=== PATIENT | female | born 1960 | race Caucasian/White ===

== ENCOUNTER 2017-02-28 22:33 | Inpatient (IN) | payer OTHER ==
[~2017-02-28] VITALS: Ht 160 cm; Wt 70.8 kg
[~2017-02-28 22:33] MED LIST: LEVO50TA74 PO; MULT1TAB59
--- NOTE | 2017-02-28 23:22 | RADRPT ---
PROCEDURE: XR Chest. CLINICAL INDICATION: Chest pain. TECHNIQUE: Single frontal view. COMPARISON: None. FINDINGS: The lungs are clear. The heart size is normal. There is no pleural effusion. There is no pneumothorax. IMPRESSION: 1. Normal chest radiograph. RPTAT: QQ .Randy Escoto MD, Date Time Electronically viewed and signed by .Randy Escoto MD, on 02/28/2017 23:21 .R/
[2017-02-28 23:55] LABS: BASOPHILS % 0.6 % (0.0-2.0); EOSINOPHILS # 0.2 10^3/ul (0.0-0.5); EOSINOPHILS % 3.1 % (0.0-7.0); HEMATOCRIT 36.9 % (37.0-47.0); HEMOGLOBIN 12.2 g/dl (12.0-16.0); LYMPHOCYTES # 2.2 10^3/ul (0.8-2.9); LYMPHOCYTES % 35.3 % (15.0-51.0); MEAN CORPUSCULAR HEMOGLOBIN 30.8 pg (29.0-33.0); MEAN CORPUSCULAR HGB CONC 33.1 g/dl (32.0-37.0); MEAN CORPUSCULAR VOLUME 93.2 fl (82.0-101.0); MONOCYTE # 0.7 10^3/ul (0.3-0.9); MONOCYTES % 10.6 % (0.0-11.0); NEUTROPHIL # 3.1 10^3/ul (1.6-7.5); NEUTROPHILS % 50.2 % (39.0-77.0); PLATELET COUNT 367 10^3/UL (140-415); RED BLOOD COUNT 3.96 10^6/ul (4.20-5.40); RED CELL DISTRIBUTION WIDTH 12.3 % (11.5-14.5); WHITE BLOOD COUNT 6.2 10^3/ul (4.8-10.8)
[2017-03-01 00:17] LABS: ALANINE AMINOTRANSFERASE 78 IU/L (13-69); ALBUMIN 4.1 g/dl (3.3-4.9); ALBUMIN/GLOBULIN RATIO 1.17; ALKALINE PHOSPHATASE 73 IU/L (42-121); ANION GAP 10 (8-16); ASPARTATE AMINO TRANSFERASE 49 IU/L (15-46); BILIRUBIN,INDIRECT 0.1 mg/dl (0-1.1); BILIRUBIN,TOTAL 0.1 mg/dl (0.2-1.3); BLOOD UREA NITROGEN 14 mg/dl (7-20); CALCIUM 8.9 mg/dl (8.4-10.2); CARBON DIOXIDE 29 mmol/L (21-31); CHLORIDE 103 mmol/L (97-110); CREATININE 0.78 mg/dl (0.44-1.00); GLUCOSE 102 mg/dl (70-220); POTASSIUM 3.8 mmol/L (3.5-5.1); SODIUM 138 mmol/L (135-144); TOTAL PROTEIN 7.6 g/dl (6.1-8.1)
[2017-03-01 00:29] LABS: B-TYPE NATRIURETIC PEPTIDE 64 PG/ML (0-125)
[2017-03-01 00:40] LABS: TROPONIN-I < 0.012 ng/ml (0.00-0.12)
[2017-03-01] MEDS ORDERED: ATOR20TA38 PO ×2 (02:18→12:40)
[2017-03-01] MEDS ORDERED: NAPR-688 PO (02:18)
--- NOTE | 2017-03-01 02:36 | ERA ---
ER Documentation Chief Complaint Date/Time DATE: 03/01/17 TIME: 02:30 Chief Complaint c/o mid chest pain radiating to left arm, started this AM. Hx: Ovarian CA HPI This is a 56-year-old female comes in with chest pain rating on the started this morning. Pain is mild to moderate intensity. No nausea no vomiting no chills. Pain is sharp, substernal, nonexertional positional no exacerbating or alleviating factors. No other current complaints for the patient. No nausea no vomiting diaphoresis. Patient is a history of ovarian cancer giving her risk factor for hypercoagulable state. ROS All systems reviewed and are negative except as per history of present illness. Medications Home Meds Reported Medications Atorvastatin Calcium* (Atorvastatin Calcium*) 20 Mg Tablet, 20 MG PO QHS, #30 TAB 03/01/17 Naproxen* (Naproxen*) 500 Mg Tablet, 500 MG PO DAILY Y for PAIN, TAB 03/01/17 Levothyroxine Sodium* (Levothyroxine Sodium*) 50 Mcg Tablet, 50 MCG PO BEFORE BREAKFAST, #30 TAB 04/06/16 Discontinued Reported Medications Multivitamins* (Multivitamins*) 1 Tab Tablet 08/03/10 Allergies Allergies: Coded Allergies: No Known Allergies (Unverified Allergy, Mild, 03/01/17) PMhx/Soc History of Surgery: Yes (luz elena, appy, iud removed, breast implant) Anesthesia Reaction: Yes (voming ) Hx Neurological Disorder: No Hx Respiratory Disorders: No Hx Cardiac Disorders: Yes (high chol, not taking med) Hx Psychiatric Problems: No Hx Miscellaneous Medical Probl: No Hx Alcohol Use: No Hx Substance Use: No Hx Tobacco Use: No Smoking Status: Never smoker Physical Exam Vitals Vital Signs Date Time Temp Pulse Resp B/P Pulse Ox O2 Delivery O2 Flow Rate FiO2 03/01/17 02:24 61 16 122/88 99 Room Air 03/01/17 01:00 67 124/92 98 Room Air 03/01/17 00:41 69 15 132/77 99 Room Air 02/28/17 23:20 127/85 02/28/17 22:40 98.7 76 20 151/82 97 Physical Exam Const: [] Head: Atraumatic Eyes: Normal Conjunctiva ENT: Normal External Ears, Nose and Mouth. Neck: Full range of motion..~ No meningismus. Resp: Clear to auscultation bilaterally Cardio: Regular rate and rhythm, no murmurs Abd: Soft, non tender, non distended. Normal bowel sounds Skin: No petechiae or rashes Back: No midline or flank tenderness Ext: No cyanosis, or edema Neur: Awake and alert Psych: Normal Mood and Affect Result Diagram: 02/28/17 2350 02/28/17 2350 Results 24 hrs Laboratory Tests Test 02/28/17 23:50 White Blood Count 6.210^3/ul Red Blood Count 3.9610^6/ul Hemoglobin 12.2g/dl Hematocrit 36.9% Mean Corpuscular Volume 93.2fl Mean Corpuscular Hemoglobin 30.8pg Mean Corpuscular Hemoglobin Concent 33.1g/dl Red Cell Distribution Width 12.3% Platelet Count 56740^3/UL Mean Platelet Volume 10.0fl Neutrophils % 50.2% Lymphocytes % 35.3% Monocytes % 10.6% Eosinophils % 3.1% Basophils % 0.6% Nucleated Red Blood Cells % 0.0/100WBC Neutrophils # 3.110^3/ul Lymphocytes # 2.210^3/ul Monocytes # 0.710^3/ul Eosinophils # 0.210^3/ul Basophils # 0.010^3/ul Nucleated Red Blood Cells # 0.010^3/ul Sodium Level 138mmol/L Potassium Level 3.8mmol/L Chloride Level 103mmol/L Carbon Dioxide Level 29mmol/L Anion Gap 10 Blood Urea Nitrogen 14mg/dl Creatinine 0.78mg/dl Glucose Level 102mg/dl Calcium Level 8.9mg/dl Total Bilirubin 0.1mg/dl Direct Bilirubin 0.00mg/dl Indirect Bilirubin 0.1mg/dl Aspartate Amino Transf (AST/SGOT) 49IU/L Alanine Aminotransferase (ALT/SGPT) 78IU/L Alkaline Phosphatase 73IU/L Troponin I < 0.012ng/ml B-Type Natriuretic Peptide 64PG/ML Total Protein 7.6g/dl Albumin 4.1g/dl Globulin 3.50g/dl Albumin/Globulin Ratio 1.17 Procedures/MDM EKG: Rate/Rhythm: [Normal Sinus Rhythm] QRS, ST, T-waves: [No changes consistent w/ acute ischemia] Impression: [No evidence of ischemia or arrhythmia] Chest X-ray 1V Interpreted by me: Soft Tissue: No acute abnormalities Bones: No acute abnormalities Mediastinum/Cardiac Silhouette/Lungs: [No acute abnormalities] Patient's symptoms are concerning for cardiac cause will require inpatient workup and continuous monitoring. Further w/u for ischemia, arrhythmia, PE or dissection will be deferred to the inpatient team. Accepting Care Team: Current data and ongoing care discussed. Time: 200 Primary Provider: Hospitalist Consulting: [XOXOXO] Outstanding Data: none Departure Diagnosis: Primary Impression: Chest pain Qualified Code: R07.9 - Chest pain, unspecified type Condition: Serious ZORAIDA MARRERO Mar 01, 2017 02:36
[2017-03-01 03:45] VITALS: BP 149/84; PULSE 63; RESP 18; Ht 160 cm; Wt 70.8 kg
[2017-03-01] MEDS ORDERED: ACETAMINOPHEN 325 MG TAB PO PRN (04:00)
[2017-03-01] MEDS ORDERED: NITROGLYCERIN (SL) 0.4 MG TAB SL PRN (04:00)
[2017-03-01] MEDS ORDERED: ALBUTEROL/IPRATROPIUM (NEB) 3 ML AMP HHN PRN (04:00)
[2017-03-01] MEDS ORDERED: morphine 2 MG INJ IV PRN (04:00)
[2017-03-01] MEDS ORDERED: NACL 0.9% 3 ML SYG IV SCH (04:00)
[2017-03-01] MEDS ORDERED: ONDANSETRON 4 MG INJ IV PRN (04:00)
[2017-03-01 05:35] LABS: BASOPHIL # 0.1 10^3/ul (0.0-0.1); BASOPHILS % 0.8 % (0.0-2.0); EOSINOPHILS # 0.2 10^3/ul (0.0-0.5); HEMATOCRIT 35.9 % (37.0-47.0); HEMOGLOBIN 11.6 g/dl (12.0-16.0); LYMPHOCYTES # 2.4 10^3/ul (0.8-2.9); MEAN CORPUSCULAR HGB CONC 32.3 g/dl (32.0-37.0); MEAN CORPUSCULAR VOLUME 92.8 fl (82.0-101.0); MEAN PLATELET VOLUME 10.1 fl (7.4-10.4); MONOCYTE # 0.6 10^3/ul (0.3-0.9); MONOCYTES % 9.1 % (0.0-11.0); NEUTROPHIL # 3.1 10^3/ul (1.6-7.5); NEUTROPHILS % 48.9 % (39.0-77.0); PLATELET COUNT 350 10^3/UL (140-415); RED BLOOD COUNT 3.87 10^6/ul (4.20-5.40); RED CELL DISTRIBUTION WIDTH 12.8 % (11.5-14.5); WHITE BLOOD COUNT 6.4 10^3/ul (4.8-10.8)
[2017-03-01 05:53] LABS: CREATINE KINASE 136 IU/L (23-200)
[2017-03-01 06:06] LABS: CK-MB 1.46 ng/ml (0.0-2.4)
[2017-03-01 06:12] LABS: TROPONIN-I < 0.012 ng/ml (0.00-0.12)
[2017-03-01 06:15] LABS: ALBUMIN 3.9 g/dl (3.3-4.9); ALBUMIN/GLOBULIN RATIO 1.25; BILIRUBIN,INDIRECT 0.1 mg/dl (0-1.1); BILIRUBIN,TOTAL 0.1 mg/dl (0.2-1.3); CALCIUM 8.7 mg/dl (8.4-10.2); CHOL/HDL RATIO 4.2 RATIO; CREATININE 0.8 mg/dl (0.44-1.00); POTASSIUM 3.9 mmol/L (3.5-5.1)
[2017-03-01 06:26] LABS: THYROID STIMULATING HORMONE 5.43 MIU/L (0.465-4.680)
[2017-03-01] MEDS ORDERED: LEVOTHYROXINE 50 MCG TAB PO SCH (07:00)
--- NOTE | 2017-03-01 07:07 | HP ---
Date/Time of Note Date/Time of Note DATE: 03/01/17 TIME: 06:57 Assessment/Plan VTE Prophylaxis VTE Prophylaxis Intervention: LMWH Lines/Catheters IV Catheter Type (from [facility]): [facility] Urinary Cath still in place: No Assessment/Plan Assessment/Plan ASSESSMENT 56-year-old female with a history of hypothyroidism and recently diagnosed dyslipidemia with acute onset of shortness of breath and pressure-like chest pain. PLAN Continue telemetry monitoring Trend troponin Supplemental oxygen, aspirin, statin, as needed nitro and morphine. If the blood pressure and heart rate allows, will start beta-anh 2D echo and a cardiology consult Check A1c, fasting lipid and TSH in a.m. Continue her home Synthroid and Lipitor HPI/ROS Admit Date/Time Admit Date/Time Mar 01, 2017 at 02:22 Hx of Present Illness This is a 56-year-old female with a history of hypothyroidism and recently diagnosed dyslipidemia who presented to the emergency department complaining of shortness of breath and chest pain. She said that she was [place] the movie theater when she had an acute onset of shortness of breath and pressure-like chest pain right after eating popcorn. She then coughed up blood tinged sputum 1. She also noted a small amount of blood tinged nasal discharge. Chest pain is midsternal, pressure-like with radiation to her left upper extremity. Patient continued to have cough but has been dry. She said she has had bronchitis in the past and the cough and shortness of breath is similar in characteristic but with worsening intensity. Denied history of chest pain. When she presented to the ER, vitals were stable. Labs shows slightly elevated AST and ALT otherwise CBC and CMP were unremarkable. First troponin is negative and EKG was no ST-T wave abnormalities. Chest x-ray with clear lungs. PMH/Family/Social Social History Smoking Status: Never smoker Exam/Review of Systems Vital Signs Vitals Vital Signs Date Time Temp Pulse Resp B/P Pulse Ox O2 Delivery O2 Flow Rate FiO2 03/01/17 03:45 98.8 63 18 149/84 94 Room Air Intake and Output 02/28/17 02/28/17 03/01/17 15:00 23:00 07:00 Intake Total 100 ml Output Total 1 ml Balance 99 ml Exam Constitutional: alert, oriented, well developed Head: atraumatic, normocephalic Eyes: EOMI, PERRL Respiratory: clear to auscultation, normal air movement Cardiovascular: nl pulses, regular rate and rhythm Gastrointestinal: non-tender, soft Extremities: normal pulses Labs Result Diagram: 03/01/1743503/01/17435 Medications Medications Current Medications Ondansetron HCl (Zofran Inj) 4 mg Q6H PRN IV NAUSEA AND/OR VOMITING; Start at 04:00 Aspirin (Aspirin) 81 mg DAILY PO ; Start 03/01/17 at 09:00 Nitroglycerin (Nitroglycerin (Sl Tab) 0.4 Mg) 1 tab Q5M PRN SL CHEST PAIN; Start 03/01/17 at 04:00 Acetaminophen (Tylenol Tab) 650 mg Q6H PRN PO PAIN LEVEL 1-3 OR FEVER; Start at 04:00 Morphine Sulfate (morphine) 2 mg Q4H PRN IV PAIN LEVEL 7-10; Start 03/01/17 at 04:00 Enoxaparin Sodium (Lovenox) 40 mg DAILY SC ; Start 03/01/17 at 09:00 Atorvastatin Calcium (Lipitor) 20 mg QHS PO ; Start 03/01/17 at 21:00 ZORAIDA NIEVES MD Mar 01, 2017 07:07
[2017-03-01 07:44] VITALS: BP 125/64; RESP 18
[2017-03-01 08:01] VITALS: PULSE 56
[2017-03-01] MEDS ORDERED: ASPIRIN 81 MG TAB PO SCH (09:00)
[2017-03-01] MEDS ORDERED: ENOXAPARIN 40 MG/0.4 ML SYG SC SCH (09:00)
[2017-03-01 11:38] VITALS: BP 117/66; RESP 17
[2017-03-01 12:04] VITALS: PULSE 61
[2017-03-01 12:32] LABS: CREATINE KINASE 124 IU/L (23-200)
[2017-03-01] MEDS ORDERED: PANT40TA3 PO (12:36)
--- NOTE | 2017-03-01 12:44 | DS ---
Date/Time of Note Date/Time of Note DATE: 03/01/17 TIME: 12:38 Discharge Summary Admission/Discharge Info Admit Date/Time Mar 01, 2017 at 02:22 Discharge Date/Time Discharge Diagnosis 1. Chest pain due to GERD, resolved, protonix Patient Condition: Stable Hx of Present Illness This is a 56-year-old female with a history of hypothyroidism and recently diagnosed dyslipidemia who presented to the emergency department complaining of shortness of breath and chest pain. She said that she was at the movie theater when she had an acute onset of shortness of breath and pressure-like chest pain right after eating popcorn. She then coughed up blood tinged sputum 1. She also noted a small amount of blood tinged nasal discharge. Chest pain is midsternal, pressure-like with radiation to her left upper extremity. Patient continued to have cough but has been dry. She said she has had bronchitis in the past and the cough and shortness of breath is similar in characteristic but with worsening intensity. Denied history of chest pain. When she presented to the ER, vitals were stable. Labs shows slightly elevated AST and ALT otherwise CBC and CMP were unremarkable. First troponin is negative and EKG was no ST-T wave abnormalities. Chest x-ray with clear lungs. Hospital Course Chest pain was retrosternal at the center, from lower to the throat, squeezing like, lasted about 3 hours, improved after drink some water. She also has dry cough. Physical exam unremarkable except obesity. Troponin negative. ECG unremarkable. Chest pain and cough are considered GERD related. I discussed life syle modification with the patient and start her on protonix. Home Meds Active Scripts Pantoprazole* (Protonix*) 40 Mg Tablet., 40 MG PO DAILY, #30 TAB Prov:ULISES JOSEPH MD 03/01/17 Reported Medications Atorvastatin Calcium* (Atorvastatin Calcium*) 20 Mg Tablet, 20 MG PO QHS, #30 TAB 03/01/17 Levothyroxine Sodium* (Levothyroxine Sodium*) 50 Mcg Tablet, 50 MCG PO BEFORE BREAKFAST, #30 TAB 04/06/16 Discontinued Reported Medications Naproxen* (Naproxen*) 500 Mg Tablet, 500 MG PO DAILY Y for PAIN, TAB 03/01/17 Multivitamins* (Multivitamins*) 1 Tab Tablet 08/03/10 Follow-up Plan PCP in one week Primary Care Provider Yash Hall Pending Labs Laboratory Tests Test 02/28/17 23:50 03/01/17 04:36 03/01/17 11:30 White Blood Count 6.210^3/ul (4.8-10.8) 6.410^3/ul (4.8-10.8) Red Blood Count 3.9610^6/ul (4.20-5.40) 3.8710^6/ul (4.20-5.40) Hemoglobin 12.2g/dl (12.0-16.0) 11.6g/dl (12.0-16.0) Hematocrit 36.9% (37.0-47.0) 35.9% (37.0-47.0) Mean Corpuscular Volume 93.2fl (82.0-101.0) 92.8fl (82.0-101.0) Mean Corpuscular Hemoglobin 30.8pg (29.0-33.0) 30.0pg (29.0-33.0) Mean Corpuscular Hemoglobin Concent 33.1g/dl (32.0-37.0) 32.3g/dl (32.0-37.0) Red Cell Distribution Width 12.3% (11.5-14.5) 12.8% (11.5-14.5) Platelet Count 18594^3/UL (140-415) 33895^3/UL (140-415) Mean Platelet Volume 10.0fl (7.4-10.4) 10.1fl (7.4-10.4) Neutrophils % 50.2% (39.0-77.0) 48.9% (39.0-77.0) Lymphocytes % 35.3% (15.0-51.0) 38.0% (15.0-51.0) Monocytes % 10.6% (0.0-11.0) 9.1% (0.0-11.0) Eosinophils % 3.1% (0.0-7.0) 3.0% (0.0-7.0) Basophils % 0.6% (0.0-2.0) 0.8% (0.0-2.0) Nucleated Red Blood Cells % 0.0/100WBC (0.0-0.0) 0.0/100WBC (0.0-0.0) Neutrophils # 3.110^3/ul (1.6-7.5) 3.110^3/ul (1.6-7.5) Lymphocytes # 2.210^3/ul (0.8-2.9) 2.410^3/ul (0.8-2.9) Monocytes # 0.710^3/ul (0.3-0.9) 0.610^3/ul (0.3-0.9) Eosinophils # 0.210^3/ul (0.0-0.5) 0.210^3/ul (0.0-0.5) Basophils # 0.010^3/ul (0.0-0.1) 0.110^3/ul (0.0-0.1) Nucleated Red Blood Cells # 0.010^3/ul (0.0-0.0) 0.010^3/ul (0.0-0.0) Sodium Level 138mmol/L (135-144) 141mmol/L (135-144) Potassium Level 3.8mmol/L (3.5-5.1) 3.9mmol/L (3.5-5.1) Chloride Level 103mmol/L (97-110) 108mmol/L (97-110) Carbon Dioxide Level 29mmol/L (21-31) 27mmol/L (21-31) Anion Gap 10 (8-16) 10 (8-16) Blood Urea Nitrogen 14mg/dl (7-20) 12mg/dl (7-20) Creatinine 0.78mg/dl (0.44-1.00) 0.80mg/dl (0.44-1.00) Glucose Level 102mg/dl (70-220) 100mg/dl (70-220) Calcium Level 8.9mg/dl (8.4-10.2) 8.7mg/dl (8.4-10.2) Total Bilirubin 0.1mg/dl (0.2-1.3) 0.1mg/dl (0.2-1.3) Direct Bilirubin 0.00mg/dl (0.00-0.20) 0.00mg/dl (0.00-0.20) Indirect Bilirubin 0.1mg/dl (0-1.1) 0.1mg/dl (0-1.1) Aspartate Amino Transf (AST/SGOT) 49IU/L (15-46) 44IU/L (15-46) Alanine Aminotransferase (ALT/SGPT) 78IU/L (13-69) 70IU/L (13-69) Alkaline Phosphatase 73IU/L (42-121) 71IU/L (42-121) Troponin I < 0.012ng/ml (0.00-0.12) < 0.012ng/ml (0.00-0.12) Pending B-Type Natriuretic Peptide 64PG/ML (0-125) Total Protein 7.6g/dl (6.1-8.1) 7.0g/dl (6.1-8.1) Albumin 4.1g/dl (3.3-4.9) 3.9g/dl (3.3-4.9) Globulin 3.50g/dl (1.3-3.2) 3.10g/dl (1.3-3.2) Albumin/Globulin Ratio 1.17 1.25 Hemoglobin A1c 5.6% (0-5.9) Magnesium Level 2.0mg/dl (1.7-2.5) Creatine Kinase 136IU/L (23-200) 124IU/L (23-200) Creatine Kinase Index 1.1 Pending Creatinine Kinase MB (Mass) 1.46ng/ml (0.0-2.4) Pending Triglycerides Level 173mg/dl (0-149) Cholesterol Level 139mg/dl (100-200) LDL Cholesterol, Calculated 71mg/dl HDL Cholesterol 33mg/dl (37-92) Cholesterol/HDL Ratio 4.2RATIO Thyroid Stimulating Hormone (TSH) 5.430MIU/L (0.465-4.680) ULISES JOSEPH MD Mar 01, 2017 12:44
[2017-03-01 12:46] LABS: CK-MB 1.06 ng/ml (0.0-2.4)
[2017-03-01 12:47] LABS: TROPONIN-I < 0.012 ng/ml (0.00-0.12)
--- NOTE | 2017-03-01 13:58 | RADRPT ---
Echocardiogram Report Patient Name: SHEY HERNANDEZ Gender: Female Date: 1960 Study Date: 01-Mar-2017 Provider Network Manager: Thang [facility] Location: [id number] Ref. Physician: ZORAIDA NIEVES Quality: Good Procedures: Transthoracic echocardiogram with complete 2D, M-Mode, and doppler examination. Indications: Chest Pain. 2D/M Mode Doppler Measurement Value Normal Ranges Measurement Value Normal Ranges LVIDd 2D 3.8 3.5 - 5.6 cm AV Peak Luisito 1.6 m/sec LVIDs 2D 2.3 2.1 - 4.1 cm AV Peak PG 10.0 mmHg FS 2D 40.1 % LVOT Peak Luisito 1.1 m/sec LVPWd 2D 1.1 0.6 - 1.1 cm LVOT Peak PG 5.0 mmHg IVSd 2D 1.1 0.6 - 1.1 cm MV E Peak Luisito 0.9 m/sec IVS/LVPW 2D 1.0 MV A Peak Luisito 0.6 m/sec AoR Diam 2D 2.8 2.0 - 3.7 cm MV E/A 1.4 LA/Ao 2D 1 0 - 1 MV Decel Time 201 msec EDV 2D 55.7 cm3 MV E/A 1.4 ESV 2D 12.0 cm3 TR Peak Luisito 2.3 m/sec LA Dimen 2D 3.1 2.3 - 4.0 cm TR Peak PG 20.0 mmHg RVSP 23.0 mmHg Findings Left Ventricle: Normal left ventricular systolic function. Normal left ventricular cavity size. Normal left ventricular wall thickness. Ejection fraction is visually estimated at 65 %. Tissue Doppler/Mitral Doppler indices are within normal limits. Right Ventricle: Normal right ventricular size. Normal right ventricular systolic function. Left Atrium: The left atrium is normal in size. Right Atrium: The right atrium is normal in size. Mitral Valve: Normal appearance and function of the mitral valve with trace physiologic regurgitation. Aortic Valve: Normal appearance of the aortic valve. No significant aortic stenosis or insufficiency. Tricuspid Valve: Normal appearance of the tricuspid valve. Estimated peak PA systolic pressure 23 mmHg. There is trace tricuspid regurgitation. Pulmonic Valve: Normal pulmonic valve appearance. Pericardium: Normal pericardium with no significant pericardial effusion. Aorta: Normal aortic root. IVC: Normal size and normal respiratory collapse consistent with normal right atrial pressure. Conclusions 1.Normal left ventricular systolic function. Normal left ventricular cavity size. Normal left ventricular wall thickness. Ejection fraction is visually estimated at 65 %. Tissue Doppler/Mitral Doppler indices are within normal limits. 2.Normal right ventricular size. Normal right ventricular systolic function. 3.The left atrium is normal in size. 4.The right atrium is normal in size. 5.No significant valvular stenosis or regurgitation seen. 6.Normal pericardium with no significant pericardial effusion. Electronically Signed By: Dereck Bustillo 01-Mar-2017 13:57:34 -0700 Patient Name: SHEY HERNANDEZ Study Date: 01-Mar-2017 [id number]
[2017-03-01] MEDS ORDERED: ATORVASTATIN 20 MG TAB PO SCH (21:00)
== END 2017-03-01 16:00 | disposition home or self-care (01) | DRG 392 ==
LOC: E/R 22:33 → MS4 03-01 02:22
PROVIDERS: ADMIT Hospitalist; ATTEND Hospitalist
DX: K21.9 Gastro-esophageal reflux disease without esophagitis (principal); E03.9 Hypothyroidism, unspecified; R07.9 Chest pain, unspecified; E78.5 Hyperlipidemia, unspecified
CPT/HCPCS: 36415; 71010; 80053; 80061; 82550; 82553; 83036; 83735; 83880; 84443; 84484; 85025; 93005; 93306; J1650